=== PATIENT | female | born 1945 | race Caucasian/White ===

== ENCOUNTER → 2017-04-04 | Outpatient (CLI) | payer OTHER ==
[~2017-04-04] VITALS: Ht 162.6 cm; Wt 81.6 kg
[~2017-04-04] MED LIST: ASPIR 8181 MG PO; DULERA 100 MCG/13 GM; LIVALO4 MG PO; LOVENOX30 MG/0.3 SQ; NORCO 5-325 TA1 EACH PO; OMEPRAZOLE40 MG PO
--- NOTE | ~2017-04-04 | HPC ---
[facility] [place] [address] PAIN MANAGEMENT CONSULTATION Name: SALLYALICE Sylvain Room #: REG [facility]RON Cel[facility]#: [id number] Admission: 04/04/17 Attend Phys: Lincoln Sheets DO Discharge: Date of : 45 Report #: [id number] THIS REPORT FOR: //name// CC: CORINA Sheets The patient is a very pleasant 71-year-old female. She had prior been treated for symptomatic lumbar radiculopathy, secondary to fairly significant spinal stenosis with series of three epidural injections, greater than a year ago, injections were back in January through March of 2016. The patient noted some 80-90% relief for 6-9 months. The patient notes pain has gradually begun to recur. She and her had been packing their home, downsizing to move, with this, pain seems to be getting worse. Pain is primarily in the low back, left lateral leg into the foot with paresthesia, but no weakness. No saddle anesthesia, nor bowel or bladder continence changes. The patient rates her subjective pain score as 7/10, described as constant, aching, gnawing, sharp, numbness and tingling. Pain is exacerbated with standing and gets some relief when she is recumbent. PHYSICAL EXAMINATION: Shows a 71-year-old female, BMI is 30.9 kilograms per meter squared. Vital signs stable as noted in the EMR. Rises from the chair using the armrest. Gait is modestly antalgic. Positive straight leg raise on the right with slight decreased right hip flexion and lower extremity extension strength. Patellar reflexes diminished on the left compared to the right, moderately antalgic gait, positive straight leg raise on the left, slight decreased left hip flexion and lower extremity extension strength and diminished patellar reflex on the left. We reviewed the diagnostic studies, including an MRI from 03/19/2016 noting moderate to severe buckling of the ligamentum flavum at L4-L5. With a broad-based disk protrusion, causing severe spinal stenosis at this level, left greater than right, neural foraminal narrowing. Important comorbidities notes a history of protein S insufficiency with a 30-year history of DVT. The patient has been on multiple anticoagulants, currently using Lovenox daily. Again, we reviewed the 03/19/2016 MRI, L4-L5 notes moderate to severe Buckling of the ligamentum flavum with mild to moderate facet degenerative changes in combination with broad posterior disk protrusion. There is severe central spinal stenosis, left greater than right lateral recess stenosis, contacting the descending L5 nerve roots, greater on the left. A moderate left and [id number] right neural foraminal compromise. Appears to be posterior annular tears of L2-L3, L3-L4, L4-L5, and L5-S1. [facility] [address] [place] [address] PAIN MANAGEMENT CONSULTATION Name: ALICE ZAVALA Sylvain Room #: REG BYRON Celis#: [id number] Admission: 04/04/17 Attend Phys: Lincoln Sheets DO Discharge: Date of : 45 Report #: [id number] ASSESSMENT: Symptomatic lumbar radiculopathy secondary to spinal stenosis as noted above. RECOMMENDATIONS: Epidural injection under fluoroscopy. We will move forward with a left L4-L5 transforaminal epidural injection. We have done midline epidural injection at L4-L5 in the past, but again given degree of stenosis, I think the safer option would be a transforaminal approach. Discharged in good and stable condition. We will see the patient Saturday at [facility] for the aforementioned interventional procedure. She will need to be offered Lovenox for 24 hours. By: 1550 17 Lincoln Sheets DO /nt
[2017-04-04 14:26] VITALS: BP 141/80
== END ==
LOC: PAIN 13:31
DX: M54.16 Radiculopathy, lumbar region (principal); M48.06 Spinal stenosis, lumbar region

== ENCOUNTER → 2017-04-11 | Outpatient (CLI) | payer OTHER ==
[~2017-04-11] VITALS: Ht 162.6 cm; Wt 81.7 kg
[~2017-04-11] MED LIST changes: +AMBIEN 5 MG TABL5 M1 PO; +CALCIUM 500 +1 EAC5 PO; +CELEXA20 MG PO; +CENTRUM SILVER1 EAC4 PO; -DULERA 100 MCG/13 GM; +DULERA 100 MCG/13 GM INH
--- NOTE | ~2017-04-11 | S ---
[facility] [address] [place] [address] SURGICAL PATH RPT PROCEDURE Name: ALICE ZAVALA Room #: REG [facility]#: [id number] Admission: 04/11/17 Date of : 45 Discharge: Report #: [id number] Path Case #: [id number] PATHOLOGY REPORT DRAFT COLLECTION DATE: 04/11/2017 RECEIVED DATE: 04/11/2017 SPECIMEN(S) RECEIVED: A.Gastric/stomach B.Proximal transverse polyp C.Spleenic flexure bx polyp D.Polyp at 70 cm E.Rectal polyp
--- NOTE | ~2017-04-11 | P ---
[facility] [place] [address] [place] [address] [place] [address] PROCEDURE REPORT Name: ALICE ZAVALA Room #: REG [facility]#: [id number] Admission: 04/11/17 Attend Phys: Shmuel Henriquez MD Discharge: Date of : 45 Report #: [id number] THIS REPORT FOR: //name// CC: [facility] physician/PCP Shmuel Walden MD DATE OF SERVICE: 04/11/2017 BRIEF HISTORY: The patient is a 71-year-old woman who has had longstanding reflux disease and she takes omeprazole 40 mg daily, which controls her typical burning symptoms. She recently in the past month to two has developed a "rawness" in the upper esophageal area. This is a different than her typical burning symptoms. It is also noted that her mother had stomach cancer. PREOPERATIVE DIAGNOSIS: Worsening reflux symptoms on therapy. POSTOPERATIVE DIAGNOSES: 1. Moderate diffuse erythematous gastritis. 2. Small hiatus hernia. MEDICATIONS: Deep sedation with propofol per anesthesia. SPECIMEN: Biopsies of antrum and body, rule out H. pylori. ESTIMATED BLOOD LOSS: 3 mL. PROCEDURE: EGD with biopsy. FINDINGS: Prior to propofol sedation, procedure of upper endoscopy discussed with the patient as well as potential risks and its complications. She indicates she understands and desires to proceed. DESCRIPTION OF PROCEDURE: With the patient in left lateral decubitus position, the [employer] video endoscope was inserted in the cervical esophagus under direct vision without difficulty. Examination of the esophagus and stomach revealed normal appearing mucosa. The scope was advanced and withdrawn up and down the entire length of the esophagus on multiple occasions, no mucosal abnormalities were seen with regards to her symptoms. No strictures or masses were seen. Hendricks mucosa was not seen. The squamocolumnar junction was normal. Intermittently, a small 2 cm sliding type hiatus hernia was seen. Mucosa and hernia was normal. Scope was advanced in the stomach, was examined on end view as well as retroflexed views. There was a pattern of diffuse erythematous gastritis. No ulcers or erosions were seen. No bleeding lesions were seen. Upon retroflexion, no mass lesions were seen, but the small hiatus hernia was seen. The pylorus, duodenal bulb and postbulbar sweep were inspected and noted [address] [address] PROCEDURE REPORT Name: ALICE ZAVALA Room #: REG [facility].#: [id number] Admission: 04/11/17 Attend Phys: Shmuel Henriquez MD Discharge: Date of : 45 Report #: [id number] to be within normal limits. At that point, the scope was slowly withdrawn and careful circumferential views confirmed the above findings. The patient tolerated the procedure well. CONDITION OF THE PATIENT UPON DISCHARGE: Following procedure, the patient was drowsy and was prepared for colonoscopy. INSTRUCTIONS TO THE PATIENT AND FAMILY AT THE TIME OF DISCHARGE: She is currently taking omeprazole 40 mg daily. We can empirically try a 40-week trial of b.i.d. omeprazole for the raw symptoms. After 48 weeks, she may reduce back to 1 daily or even less than daily as needed to control her heartburn symptoms. She is to return to the office or follow up with me or one of the mid levels if her symptoms have not resolved. We will proceed with colonoscopy at this time. <ELECTRONICALLY SIGNED> By: Shmuel Henriquez MD 04/12/17 1644 [id number] Shmuel Henriquez MD /nt
--- NOTE | ~2017-04-11 | P ---
[facility] [address] [place] [address] PROCEDURE REPORT Name: ALICE ZAVALA Room #: REG [facility]#: [id number] Admission: 04/11/17 Attend Phys: Shmuel Henriquez MD Discharge: Date of : 45 Report #: [id number] THIS REPORT FOR: //name// CC: [facility] physician/PCP Shmuel Walden MD BRIEF HISTORY: The patient is a 71-year-old woman for high risk screening colonoscopy due to history of colon polyps. PREOPERATIVE DIAGNOSIS: High risk screening colonoscopy. POSTOPERATIVE DIAGNOSES: 1. Multiple colon polyps. 2. A few scattered colonic diverticula. MEDICATIONS: Deep sedation with propofol per anesthesia. SPECIMENS: 1. Diminutive polyp, proximal transverse colon. 2. Diminutive polyp, splenic flexure. 3. Diminutive polyp at 70 cm. 4. Diminutive polyp, rectum. ESTIMATED BLOOD LOSS: 3 mL. PROCEDURE: Colonoscopy to cecum and terminal ileum with biopsy. FINDINGS: Prior to propofol sedation, procedure of colonoscopy discussed with the patient as well as potential risks, benefits, and complications. She indicates she understands and desires to proceed. With the patient in left lateral decubitus position, digital examination was completed, which revealed no abnormalities. Subsequently, the [employer] video colonoscope was introduced into the rectum and advanced under direct vision to the cecum. Done with minimal difficulty. The cecum was identified by the ileocecal valve and the appendiceal orifice. I was able to visualize the distal segment of terminal ileum, which was inspected and noted to be unremarkable. At that point, the scope was slowly withdrawn and careful circumferential views obtained including retroflexing the scope in the ascending colon. Upon slow withdrawal of the scope, the prep was noted to be excellent. . As we withdrew the scope, the mucosa was inspected. It was noted to be within normal limits, normal vascular pattern, and normal light reflex. As we withdrew the scope, diminutive polyps were identified and removed from the proximal transverse colon, splenic flexure 70 cm. An occasional diverticulum was seen in the colon. There was a little bit more diverticular disease in the sigmoid, but not extensive diverticular disease. There was no endoscopic [facility] [address] [place] [address] PROCEDURE REPORT Name: ALICE ZAVALA Room #: REG [facility]#: [id number] Admission: 04/11/17 Attend Phys: Shmuel Henriquez MD Discharge: Date of : 45 Report #: [id number] evidence of diverticulitis. Scope was withdrawn in the rectum and a diminutive rectal polyp was seen and removed by biopsy. Upon retroflexion, small hemorrhoids and tags were seen. No other lesions were seen. Scope was withdrawn. The patient tolerated the procedure well. CONDITION OF THE PATIENT UPON DISCHARGE: Following procedure, the patient drowsy, aroused, conversant and will be discharged home when fully ambulatory. INSTRUCTIONS TO THE PATIENT AND FAMILY AT THE TIME OF DISCHARGE: We will follow up on the pathology. If three or more polyps are adenomas, she should return in 3 years, otherwise she should return in 5 years for a high risk screening colonoscopy. Withdrawal time from the cecum was 16 minutes. Last colonoscopy was 3 years ago. <ELECTRONICALLY SIGNED> By: Shmuel Henriquez MD 04/12/17 1644 1007 [id number] Shmuel Henriquez MD /nt
== END | disposition home or self-care (01) ==
LOC: GI 07:58
DX: Z12.11 Encounter for screening for malignant neoplasm of colon (principal); D12.4 Benign neoplasm of descending colon; D12.3 Benign neoplasm of transverse colon; K62.1 Rectal polyp; Z86.010 Personal history of colon polyps; K57.30 Diverticulosis of large intestine without perforation or abscess without bleeding; K64.9 Unspecified hemorrhoids; K21.9 Gastro-esophageal reflux disease without esophagitis; K44.9 Diaphragmatic hernia without obstruction or gangrene; F32.9 Major depressive disorder, single episode, unspecified; F41.9 Anxiety disorder, unspecified; J42 Unspecified chronic bronchitis; E78.00 Pure hypercholesterolemia, unspecified; Z90.49 Acquired absence of other specified parts of digestive tract; Z98.890 Other specified postprocedural states
CPT/HCPCS: 62110; 62900

== ENCOUNTER → 2017-04-12 | Outpatient (CLI) | payer OTHER ==
[~2017-04-12] VITALS: Ht 162.6 cm; Wt 87.5 kg
--- NOTE | ~2017-04-12 | HPC ---
[facility] [place] [address] [place] [address] PAIN MANAGEMENT CONSULTATION Name: SALLYALICE Sylvain Room #: REG [facility]#: [id number] Admission: 04/12/17 Attend Phys: Lincoln Sheets DO Discharge: Date of : 45 Report #: [id number] THIS REPORT FOR: //name// CC: FAM unknown Lincoln Sheets HISTORY OF PRESENT ILLNESS: The patient is a very pleasant 71-year-old female being treated for lumbar radiculopathy secondary to fairly tight stenosis at L4-L5. We had seen her earlier last week for evaluation, 04/04/2017. We elected to proceed with an epidural injection under fluoroscopy. She had to be off of her Lovenox for 24 hours. She has a history of protein S insufficiency with 30-year history of DVT. She presents to pain clinic today for left L4-L5 transforaminal epidural injection. She has been off of Lovenox since yesterday at 10:00 a.m. PROCEDURE: Transforaminal epidural injection under fluoroscopy. PROCEDURE NOTE: After both written and informed consent was obtained including risk of spinal cord damage, infection, increased pain and paralysis, the patient agreed to proceed. The patient was taken to the fluoroscopy suite, placed in a prone position with appropriate abdominal bolstering. After sterile prep with ChloraPrep and sterile drape, a skin wheal with 1% Xylocaine was raised. A 22 gauge 4-1/2 inch epidural Tuohy needle was inserted. From an oblique approach into the posterior-superior aspect of the left L4-L5 neural foramen with continuous pressure on the glass syringe plunger for loss of resistance. Glass syringe was filled with 2 cc of 0.1 Xylocaine. The glass loss of resistance syringe was removed. A low volume extension tubing was connected, negative aspiration was accomplished for cerebrospinal fluid or blood. 1 mL of Omnipaque was injected which showed spread both within the epidural space and laterally along the nerve root. This was followed with 80 mg of triamcinolone plus 1 mL of 1.5% preservative-free Xylocaine. Needle was partially withdrawn, 0.5 mL of Xylocaine was injected to clear the needle and the needle was removed. The area was cleansed, band-aid was applied. The patient was allowed to ambulate to the recovery room, discharged in good and stable condition. ASSESSMENT AND PLAN: Symptomatic lumbar radiculopathy secondary to spinal stenosis. Subjective pain score 6/10 on presentation. I am happy to report that the pain was absent on discharge. The patient was told to resume Lovenox today and than her usual a.m. daily schedule. Follow up in 3 weeks for reevaluation. Cancel if doing well. By: [id number] Lincoln Sheets DO /nt
[2017-04-12 12:47] VITALS: BP 154/75
== END | disposition home or self-care (01) ==
LOC: PAIN 06:54
DX: M48.06 Spinal stenosis, lumbar region (principal); I82.499 Acute embolism and thrombosis of other specified deep vein of unspecified lower extremity

== ENCOUNTER → 2017-05-17 | Outpatient (CLI) | payer OTHER ==
[~2017-05-17] VITALS: Ht 162.6 cm; Wt 86.6 kg
[~2017-05-17] MED LIST changes: +TRAMADOL 50 MG50 MG PO
[2017-05-17 10:06] VITALS: BP 165/82
== END | disposition home or self-care (01) ==
LOC: PAIN 05-03 08:40
DX: M48.06 Spinal stenosis, lumbar region (principal); D69.9 Hemorrhagic condition, unspecified; G89.29 Other chronic pain; Z88.2 Allergy status to sulfonamides; Z79.82 Long term (current) use of aspirin